=== PATIENT | female | born 1985 | race Caucasian/White ===

== ENCOUNTER 2020-01-27 11:58 | Inpatient (IN) | payer OTHER, BC ==
[~2020-01-27] VITALS: Ht 167.6 cm; Wt 74.5 kg
[2020-01-27] MEDS ORDERED: normal saline 1000ML IV soln IVB ONE (13:05)
[2020-01-27 13:13] LABS: CLARITY,URINE CLEAR (Clear); COLOR,URINE YELLOW (Yellow); GLUCOSE, URINE NEGATIVE (Neg); KETONES,URINE NEGATIVE (Neg); LEUKOCYTE ESTERASE ,URINE NEGATIVE (Neg); NITRITES, URINE NEGATIVE (Neg); OCCULT BLOOD,URINE NEGATIVE (Neg); PH,URINE 6.5 (4.8-8.0); PROTEIN,URINE NEGATIVE (Neg)
[2020-01-27 13:13] LABS: BASOPHILS % (AUTO) 0.7 % (0-1); EOSINOPHILS # (AUTO) 0.1 X10'3 (0-0.9); EOSINOPHILS % (AUTO) 1.5 % (0-6); HEMATOCRIT 41.4 % (35.0-45.0); HEMOGLOBIN 14.2 g/dl (12.0-16.0); LYMPHOCYTES # (AUTO) 1.8 X10'3 (1.1-4.8); LYMPHOCYTES % (AUTO) 39.7 % (21-51); MEAN CORPUSCULAR HEMOGLOBIN 31.1 PG (27.0-31.0); MEAN CORPUSCULAR HGB CONC 34.3 g/dL (33.0-36.5); MEAN CORPUSCULAR VOLUME 90.8 FL (78-98); MEAN PLATELET VOLUME 9.5 FL (7.4-10.4); MONOCYTES # (AUTO) 0.5 X10'3 (0-0.9); MONOCYTES % (AUTO) 11.3 % (2-12); NEUTROPHILS # (AUTO) 2.1 X10'3 (1.8-7.7); NEUTROPHILS % (AUTO) 46.8 % (42-75); PLATELET COUNT 182 X10'3 (140-440); RED BLOOD COUNT 4.56 X10'6 (4.20-5.60); RED CELL DISTRIBUTION WIDTH 13.8 % (11.5-14.5); WHITE BLOOD COUNT 4.6 X10'3 (4.5-11.0)
[2020-01-27 13:14] LABS: UA COLLECTION TYPE CLN CATCH MIDSTREAM
[2020-01-27 13:21] LABS: URINE AMPHETAMINE SCREEN NEGATIVE (Neg); URINE BARBITUATE SCREEN NEGATIVE (Neg); URINE BENZODIAZEPINES SCREEN NEGATIVE (Neg); URINE CANNABINOID SCREEN NEGATIVE (Neg); URINE COCAINE SCREEN NEGATIVE (Neg); URINE METHADONE SCREEN NEGATIVE (Neg); URINE OPIATE SCREEN NEGATIVE (Neg); URINE PHENCYCLIDINE SCREEN NEGATIVE (Neg)
[2020-01-27 13:26] LABS: ALBUMIN 3.4 G/DL (3.4-5.0); ALBUMIN/GLOBULIN RATIO 1.1 (1.1-1.5); ALKALINE PHOSPHATASE 168 IU/L (46-116); ANION GAP 7 (8-16); ASPARTATE AMINO TRANSFERASE 812 U/L (10-37); BILIRUBIN,TOTAL 2.6 MG/DL (0.1-1.0); BLOOD UREA NITROGEN 13 MG/DL (7-18); BUN/CREATININE RATIO 15.1 (6.6-38.0); CALCIUM 8.6 MG/DL (8.5-10.1); CHLORIDE 108 MMOL/L (99-107); CREATININE 0.86 MG/DL (0.40-0.90); GLUCOSE 99 MG/DL (70-104); LIPASE 235 U/L (73-393); SODIUM 142 MMOL/L (135-145); TOTAL CARBON DIOXIDE 27.4 MMOL/L (24-32); TOTAL PROTEIN 6.4 G/DL (6.4-8.2); eGFR 75 ML/MIN
[2020-01-27 13:27] LABS: ALANINE AMINOTRANSFERASE 1471 U/L (12-78)
[2020-01-27 14:28] LABS: URINE HCG NEGATIVE (NEG)
[2020-01-27] MEDS ORDERED: HYDROmorphone inj. 0.5 MG/0.5 ML DISP.SYRIN IV PRN (14:30)
[2020-01-27] MEDS ORDERED: mag hydrox/Alum hydrox/simeth 30ml oral suspension PO PRN (14:30)
[2020-01-27] MEDS ORDERED: magnesium hydroxide 30ml (MOM) UD suspension PO PRN (14:30)
[2020-01-27] MEDS ORDERED: acetaminophen 325mg tablet PO PRN (14:30)
--- NOTE | 2020-01-27 14:52 | NUR ---
Patient in room ED 7. I have received report from JIGNESH Payan and had the opportunity to ask questions and assume patient care.
[2020-01-27 15:11] VITALS: BP 136/85
--- NOTE | 2020-01-27 15:11 | NUR ---
Pt arrived to surgical floor via wheelchair, significant other accompanying.
[2020-01-27] MEDS: normal saline 1000ml 1,000 ML IV SCH (15:29)
--- NOTE | 2020-01-27 15:44 | NUR ---
Wears contacts Addendum: 01/27/20 at 1549 by Fidelia Box RN Amended: Links added.
--- NOTE | 2020-01-27 16:45 | NUR ---
[facility]
--- NOTE | 2020-01-27 16:45 | NUR ---
Pt transported to [facility] at 1615 via wheelchair
[2020-01-27] MEDS ORDERED: ASCO-10 PO (17:29)
[2020-01-27] MEDS ORDERED: MULT-1085 PO (17:29)
[2020-01-27] MEDS ORDERED: LACT1CAP65 PO (17:29)
[2020-01-27] MEDS ORDERED: TURM500C4 PO (17:29)
[2020-01-27] MEDS ORDERED: LYSI100013 PO (17:29)
[2020-01-27 18:00] VITALS: BP 100/58
--- NOTE | 2020-01-27 18:18 | NUR ---
Problems reprioritized. Patient report given, questions answered & plan of care reviewed with JIGNESH Caraballo.
[2020-01-28] VITALS (15 sets, daily range): BP systolic 102–116; BP diastolic 58–71
[2020-01-28] MEDS: normal saline 1000ml 1,000 ML IV SCH ×3 (01:44→17:19)
[2020-01-28 05:27] LABS: BASOPHILS % (AUTO) 0.6 % (0-1); EOSINOPHILS # (AUTO) 0.1 X10'3 (0-0.9); EOSINOPHILS % (AUTO) 2.2 % (0-6); HEMATOCRIT 40.4 % (35.0-45.0); HEMOGLOBIN 13.8 g/dl (12.0-16.0); LYMPHOCYTES # (AUTO) 1.8 X10'3 (1.1-4.8); LYMPHOCYTES % (AUTO) 48.6 % (21-51); MEAN CORPUSCULAR HEMOGLOBIN 31.3 PG (27.0-31.0); MEAN CORPUSCULAR HGB CONC 34.3 g/dL (33.0-36.5); MEAN CORPUSCULAR VOLUME 91.2 FL (78-98); MEAN PLATELET VOLUME 9.7 FL (7.4-10.4); MONOCYTES # (AUTO) 0.5 X10'3 (0-0.9); MONOCYTES % (AUTO) 12.7 % (2-12); NEUTROPHILS # (AUTO) 1.3 X10'3 (1.8-7.7); NEUTROPHILS % (AUTO) 35.9 % (42-75); PLATELET COUNT 141 X10'3 (140-440); RED BLOOD COUNT 4.43 X10'6 (4.20-5.60); RED CELL DISTRIBUTION WIDTH 13.6 % (11.5-14.5); WHITE BLOOD COUNT 3.6 X10'3 (4.5-11.0)
[2020-01-28 05:45] LABS: ALBUMIN 2.8 G/DL (3.4-5.0); ALBUMIN/GLOBULIN RATIO 1.1 (1.1-1.5); ALKALINE PHOSPHATASE 128 IU/L (46-116); ANION GAP 5 (8-16); ASPARTATE AMINO TRANSFERASE 679 U/L (10-37); BILIRUBIN,TOTAL 2.9 MG/DL (0.1-1.0); BLOOD UREA NITROGEN 12 MG/DL (7-18); BUN/CREATININE RATIO 15.4 (6.6-38.0); CALCIUM 8.2 MG/DL (8.5-10.1); CHLORIDE 111 MMOL/L (99-107); CREATININE 0.78 MG/DL (0.40-0.90); GLUCOSE 90 MG/DL (70-104); POTASSIUM 4.4 MMOL/L (3.5-5.1); SODIUM 141 MMOL/L (135-145); TOTAL CARBON DIOXIDE 24.9 MMOL/L (24-32); TOTAL PROTEIN 5.4 G/DL (6.4-8.2); eGFR 84 ML/MIN
[2020-01-28 05:46] LABS: ALANINE AMINOTRANSFERASE 1174 U/L (12-78)
--- NOTE | 2020-01-28 06:05 | NUR ---
Patient in room [facility]. I have received report from JIGNESH Craaballo and had the opportunity to ask questions and assume patient care.
--- NOTE | 2020-01-28 06:12 | NUR ---
Problems reprioritized. Patient report given, questions answered & plan of care reviewed with Roseann RN.
[2020-01-28] MEDS ORDERED: sincalide inj 1.5 MCG in normal saline 50ml IV soln 50 ML IV ONE (08:00)
--- NOTE | 2020-01-28 09:00 | NUR ---
Pt off the floor to [facility] Scan
--- NOTE | 2020-01-28 11:15 | NUR ---
Pt returned from [facility]
[2020-01-28] MEDS ORDERED: fentaNYL/PF 50MCG/1 ML 2ML syringe IV PRN ×2 (16:50)
[2020-01-28] MEDS ORDERED: hydrALAZINE 20mg/ml inj. IV PRN (16:50)
[2020-01-28] MEDS ORDERED: morphine 4 MG/ML inj SYRINge IV PRN (16:50)
[2020-01-28] MEDS ORDERED: ringers solution, lacted 1,000 ML IV SCH (16:50)
[2020-01-28] MEDS ORDERED: morphine 2 MG/ML inj. syringe IV PRN (16:50)
[2020-01-28] MEDS ORDERED: ondansetron/PF 4mg/2ml inj IV PRN (16:50)
[2020-01-28] MEDS ORDERED: labetalol 20mg/4ml (5mg/ml) syringe IV PRN (16:50)
--- NOTE | 2020-01-28 17:08 | NUR ---
Malnutrition consult: Pt admit w/ possible cholecystitis; currently AOx3 per CM note. Pt has normal strength, no edema/wounds, BMI 27, and PO 75% avg meals so far this admit meeting needs. Pt does not meet minimum malnutrition criteria at this time. Addendum: 01/28/20 at [address] Amended: Links added.
[2020-01-28] MEDS ORDERED: BUPIVAcaine/PF 2.5 mg/ml (0.25%) 30ml vial ONE (18:02)
[2020-01-28] MEDS ORDERED: ceFAZolin 1000mg inj ONE ×3 (18:02→18:34)
[2020-01-28] MEDS ORDERED: dexamethasone sod phosphate 10mg/ml inj ONE (18:29)
[2020-01-28] MEDS ORDERED: glycopyrrolate 0.2mg/ml inj ONE (18:29)
[2020-01-28] MEDS ORDERED: sevoflurane 250ml liquid IH ONE (18:29)
[2020-01-28] MEDS ORDERED: neostigmine methylsulfate 1 MG/ML 10ml vial ONE (18:29)
[2020-01-28] MEDS ORDERED: fentaNYL/PF 50MCG/1 ML 2ML syringe ONE (18:32)
[2020-01-28] MEDS ORDERED: propofol inj 20 ML IV ONE (18:34)
[2020-01-28] MEDS ORDERED: LIDOcaine 2% (20mg/ml) 5ml vial ONE (18:34)
[2020-01-28] MEDS ORDERED: rocuronium 10mg/ml inj IV ONE (18:34)
[2020-01-28] MEDS ORDERED: ondansetron/PF 4mg/2ml inj ONE (18:34)
[2020-01-28] MEDS ORDERED: ketorolac trometh. 30mg/ml inj. ONE (18:41)
--- NOTE | 2020-01-28 18:45 | NUR ---
Patient in room [facility]. I have received report from Roseann EGAN and had the opportunity to ask questions and assume patient care. Addendum: 01/28/20 at 1950 by Alicia Martinez RN Patient currently in down in surgery at this time.
--- NOTE | 2020-01-28 19:00 | NUR ---
Patient in surgery at this time. Addendum: 01/29/20 at 0152 by Alicia Martinez RN Amended: Links added.
--- NOTE | 2020-01-28 19:10 | NUR ---
Problems reprioritized. Patient report given, questions answered & plan of care reviewed with JIGNESH Vargas.
--- NOTE | 2020-01-28 19:19 | NUR ---
Received from OR via SURGICAL BED , accompanied by Anesthesiologist MAGUI and report given by Anesthesiolgist. PATIENT WITH VSS ATT THIS TIME. MEDICATED FOR PAIN UPON ARRIVAL. 3 ABDOMINAL BANDAIDS PRESENT. PATIENT WITH 20G PIV IN LEFT UE RUNNING LR AT 100. SCDS DONNED AND WILL CONTINUE TO ASSESS. Addendum: 01/28/20 at 1935 by Robbin Ruiz RN, RN Amended: Links added.
[2020-01-28] MEDS: ondansetron/PF 4mg/2ml inj IV PRN (19:38)
--- NOTE | 2020-01-28 19:45 | NUR ---
Received report from recovery specialist Robbin. Patient to be transferred up to room shortly.
--- NOTE | 2020-01-28 19:59 | NUR ---
ALL CRITERIA FOR TRANSFER TO THE FLOOR HAS BEEN ACHIEVED. VSS. BED LOW, CALL LIGHT AND VS. SET IN PLACE. RN PRESENT TO ACCEPT CARE. PATIENT RESTING COMFORTABLY IN BED. BELONGINGS SENT WITH PATIENT. DRESSINGS CDI. PATIENT DOES NOT WISH FOR NARCOTICS. PAINFUL UPON ARRIVAL TO SURGICAL UNIT. JIGNESH CASTILLO PRESENT TO ACCEPT PATIENT. MD KELLY CALLED FOR TORADOL AND ORDER PLACED. SPOUSE ARRIVED SHORTLY AFTER ARRIVAL TO THE FLOOR. PATIENT WITH NO EMEMSIS AT THIS TIME. DID NOT COMPLAIN OF NAUSEA UPON ARRIVAL TO SURGICAL. Addendum: 01/28/20 at 2009 by Robbin Ruiz RN, RN Amended: Links added.
--- NOTE | 2020-01-28 20:00 | NUR ---
Patient arrived to floor via surgical bed and ems instructor Robbin. Patient hooked up to VS machine. Patient is very groogy at this time, but does answer yes/no to questions.
[2020-01-29] VITALS: BP 107/64
[2020-01-29] MEDS ORDERED: ketorolac trometh. 30mg/ml inj. IV ONE (01:00)
[2020-01-29] MEDS: ondansetron/PF 4mg/2ml inj IV PRN (02:43)
[2020-01-29 04:00] VITALS: BP 98/53
[2020-01-29] MEDS: normal saline 1000ml 1,000 ML IV SCH (05:34)
--- NOTE | 2020-01-29 05:34 | NUR ---
At 0520 aide reported that pt. had only voided another 200cc light monie. Bladder scan at 0530 revealed 329cc in bladder. Patient is now up ambulating around surgical floor with at her side. Patient has been instructed to try void again on return to room.
[2020-01-29 05:55] LABS: BASOPHILS % (AUTO) 0.1 % (0-1); EOSINOPHILS % (AUTO) 0 % (0-6); HEMATOCRIT 38.6 % (35.0-45.0); HEMOGLOBIN 13.3 g/dl (12.0-16.0); LYMPHOCYTES # (AUTO) 0.6 X10'3 (1.1-4.8); LYMPHOCYTES % (AUTO) 13.9 % (21-51); MEAN CORPUSCULAR HEMOGLOBIN 31.5 PG (27.0-31.0); MEAN CORPUSCULAR HGB CONC 34.5 g/dL (33.0-36.5); MEAN CORPUSCULAR VOLUME 91.4 FL (78-98); MEAN PLATELET VOLUME 9.6 FL (7.4-10.4); MONOCYTES # (AUTO) 0.1 X10'3 (0-0.9); MONOCYTES % (AUTO) 1.6 % (2-12); NEUTROPHILS # (AUTO) 3.6 X10'3 (1.8-7.7); NEUTROPHILS % (AUTO) 84.4 % (42-75); PLATELET COUNT 170 X10'3 (140-440); RED BLOOD COUNT 4.22 X10'6 (4.20-5.60); RED CELL DISTRIBUTION WIDTH 13.9 % (11.5-14.5); WHITE BLOOD COUNT 4.2 X10'3 (4.5-11.0)
[2020-01-29 06:00] LABS: ALANINE AMINOTRANSFERASE 1093 U/L (12-78); ALBUMIN 2.8 G/DL (3.4-5.0); ALKALINE PHOSPHATASE 127 IU/L (46-116); ANION GAP 9 (8-16); ASPARTATE AMINO TRANSFERASE 584 U/L (10-37); BILIRUBIN,TOTAL 2.2 MG/DL (0.1-1.0); BLOOD UREA NITROGEN 12 MG/DL (7-18); BUN/CREATININE RATIO 13.5 (6.6-38.0); CALCIUM 8.1 MG/DL (8.5-10.1); CHLORIDE 107 MMOL/L (99-107); CREATININE 0.89 MG/DL (0.40-0.90); GLUCOSE 146 MG/DL (70-104); POTASSIUM 4.5 MMOL/L (3.5-5.1); SODIUM 140 MMOL/L (135-145); TOTAL CARBON DIOXIDE 23.9 MMOL/L (24-32); TOTAL PROTEIN 5.5 G/DL (6.4-8.2); eGFR 72 ML/MIN
--- NOTE | 2020-01-29 06:30 | NUR ---
Problems reprioritized. Patient report given, questions answered & plan of care reviewed with Sofia EGAN.
--- NOTE | 2020-01-29 07:07 | NUR ---
Patient in room [facility]. I have received report from JIGNESH Vargas and had the opportunity to ask questions and assume patient care.
[2020-01-29 08:00] VITALS: BP 96/53
[2020-01-29] MEDS: oxyCODONE/APAP 5-325mg tablet PO PRN ×2 (10:30)
[2020-01-29] MEDS ORDERED: simethicone 80mg chew tab PO SCH (10:30)
[2020-01-29 11:31] VITALS: BP 114/64
[2020-01-29] MEDS ORDERED: OXYC-658 PO (11:36)
--- NOTE | 2020-01-29 12:20 | NUR ---
Pt D/C'd home in stable conditions. tolerated liquid diet and voided without complications. IV removed intact. Discharge and medication instructions given to pt and . Pt was escorted to main lobby on W/C. Left the hospital via private vehicle accompanied by .
[2020-01-30 07:09] LABS: HBSAG SCREEN Negative (Negative)
== END 2020-01-29 12:16 | disposition home or self-care (01) | DRG 419 ==
LOC: ER 11:58 → ED HOLD 14:28 → SUR 3N 15:05
PROVIDERS: ADMIT Family Medicine; ATTEND Family Medicine
PROC: 0FT44ZZ Resection of Gallbladder, Percutaneous Endoscopic Approach (ICD-10-PCS; principal; 2020-01-28 18:29)
DX: K81.0 Acute cholecystitis (principal); R10.9 Unspecified abdominal pain; K75.9 Inflammatory liver disease, unspecified
CPT/HCPCS: 96360; 99285; Z7506; 36415; 74181; 76700; 78227; 80053; 80305; 81003; 81025; 82948; 83690; 85025; 85610; 86803; 87081; 87340; A4215; A4618; A7000; A9537; G0378; J0690; J1100; J1885; J2001; J2270; J2405; J2704; J2710; J2805; J3010; J3490; J7030; J7120

== ENCOUNTER 2023-10-27 21:51 | Emergency (ER) | payer BC, OTHER ==
[~2023-10-27] VITALS: Ht 167.6 cm; Wt 77.8 kg
[~2023-10-27 21:51] MED LIST: ASCO-10 PO; LACT1CAP65 PO; LYSI100013 PO; MULT-1085 PO; TURM500C4 PO
[2023-10-27 22:12] LABS: BASOPHILS % (AUTO) 0.6 % (0-1); EOSINOPHILS % (AUTO) 0.6 % (0-6); HEMATOCRIT 45.3 % (35.0-45.0); HEMOGLOBIN 15.7 g/dl (12.0-16.0); LYMPHOCYTES # (AUTO) 2.1 X10'3 (1.1-4.8); LYMPHOCYTES % (AUTO) 29.4 % (21-51); MEAN CORPUSCULAR HEMOGLOBIN 30.9 PG (27.0-31.0); MEAN CORPUSCULAR HGB CONC 34.6 g/dL (33.0-36.5); MEAN CORPUSCULAR VOLUME 89.4 FL (78-98); MEAN PLATELET VOLUME 9.1 FL (7.4-10.4); MONOCYTES # (AUTO) 0.5 X10'3 (0-0.9); MONOCYTES % (AUTO) 7.2 % (2-12); NEUTROPHILS # (AUTO) 4.5 X10'3 (1.8-7.7); NEUTROPHILS % (AUTO) 62.2 % (42-75); PLATELET COUNT 230 X10'3 (140-440); RED BLOOD COUNT 5.07 X10'6 (4.20-5.60); WHITE BLOOD COUNT 7.2 X10'3 (4.5-11.0)
[2023-10-27 22:26] LABS: ALANINE AMINOTRANSFERASE 31 U/L (12-78); ALBUMIN 4.1 G/DL (3.4-5.0); ALBUMIN/GLOBULIN RATIO 1.2 (1.1-1.5); ALKALINE PHOSPHATASE 85 IU/L (46-116); ANION GAP 9 (8-16); ASPARTATE AMINO TRANSFERASE 18 U/L (10-37); BILIRUBIN,TOTAL 0.4 MG/DL (0.1-1.0); BLOOD UREA NITROGEN 11 MG/DL (7-18); BUN/CREATININE RATIO 10.9 (10.0-20.0); CALCIUM 9.5 MG/DL (8.5-10.1); CHLORIDE 104 MMOL/L (99-107); CREATININE 1.01 MG/DL (0.40-0.90); GLUCOSE 116 MG/DL (70-104); POTASSIUM 3.4 MMOL/L (3.5-5.1); SODIUM 139 MMOL/L (135-145); TOTAL CARBON DIOXIDE 26.2 MMOL/L (24-32); TOTAL PROTEIN 7.4 G/DL (6.4-8.2); eCRCL 70 ML/MIN; eGFR 61 ML/MIN
[2023-10-27 22:37] LABS: PRO BRAIN NATRIURETIC PEPTIDE 37 PG/ML (0-125)
[2023-10-28 03:43] VITALS: BP 116/82; PULSE 84; RESP 16; TEMP 98.2; O2SAT 99
== END 2023-10-28 03:45 | disposition home or self-care (01) ==
LOC: ER 21:52
DX: R00.0 Tachycardia, unspecified (principal); T50.5X5A Adverse effect of appetite depressants, initial encounter; Z79.899 Other long term (current) drug therapy; Y92.89 Other specified places as the place of occurrence of the external cause
CPT/HCPCS: 36415; 80053; 83880; 84484; 85025; 93005; 99284